=== PATIENT | male | born 1945 | race Caucasian/White ===

== ENCOUNTER 2020-03-25 11:34 | Emergency (ER) | payer MEDICARE, OTHER | END 2020-03-25 11:59 | disposition home or self-care (01) | LOC: BURERS 11:34 | DX: T16.1XXA Foreign body in right ear, initial encounter (principal); E11.9 Type 2 diabetes mellitus without complications; F17.210 Nicotine dependence, cigarettes, uncomplicated | CPT/HCPCS: 69200 ==

== ENCOUNTER 2020-06-16 15:55 | Emergency (ER) | payer MEDICARE, OTHER ==
[2020-06-16 16:22] LABS: #Basophils 0.1 thou/uL (0.0-0.2); #Eosinphils 0.2 thou/uL (0.0-0.7); #Lymphocytes 1.5 thou/uL (1.20-3.40); #Monocytes 0.5 thou/uL (0.11-0.59); #Neutrophils 2.9 thou/uL (1.40-6.50); %Basophils 1.1 % (0.0-1.0); %Eosinophils 3.8 % (0.0-10.0); Mean Corpuscular HGB CONC 31.1 g/dL (32.0-36.0); Mean Corpuscular Hemoglobin 32.9 pg (27.0-31.0); Mean Platelet Volume 6.4 fL (7.4-10.4); Platelet Count 167 thou/uL (130-400); RBC Distribution Width 11.7 % (11.5-14.5); Red Blood Cell (RBC) Count 4.26 mill/uL (4.70-6.10); White Blood Cell (WBC) Count 5.1 thou/uL (4.8-10.8)
--- NOTE | 2020-06-16 16:29 | RAD ---
EXAM: Single view of the chest HISTORY: Chest pain COMPARISON: 05/07/2020 FINDINGS: Single view of the chest shows a normal sized cardiomediastinal silhouette. The patient is status post sternotomy. There is no evidence of consolidation, mass, or pleural effusion. The bones are unremarkable IMPRESSION: No evidence of acute cardiopulmonary disease
[2020-06-16 16:35] LABS: MDiff Complete? YES; Macrocytosis MODERATE=16-30 cells (100X) (0-5/hpf)
[2020-06-16 16:36] LABS: ALT (SGPT) 9 U/L (8-55); AST (SGOT) 14 U/L (5-34); Alkaline Phosphatase 100 U/L (40-110); Anion Gap 15 mmol/L (10-20); BUN (Urea Nitrogen) 11 mg/dL (8.4-25.7); Calc. Creatinine Clearance 0 mL/min (70-130); Calcium 9.3 mg/dL (7.8-10.44); Carbon Dioxide 24 mmol/L (23-31); Chloride 105 mmol/L (98-107); Estimated GFR-MDRD 70; Glucose 94 mg/dL (83-110); Potassium 3.9 mmol/L (3.5-5.1); Sodium 140 mmol/L (136-145)
[2020-06-16] MEDS ORDERED: Nitroglycerin 2% Ointment 1 INCH/1 GM Packet ONE (16:46)
[2020-06-16 16:53] LABS: CKMB 1.4 ng/mL (0-6.6)
== END 2020-06-16 17:49 | disposition short-term general hospital (02) ==
LOC: BURERS 15:55
DX: I21.4 Non-ST elevation (NSTEMI) myocardial infarction (principal); I25.10 Atherosclerotic heart disease of native coronary artery without angina pectoris; E78.5 Hyperlipidemia, unspecified; E78.00 Pure hypercholesterolemia, unspecified; F17.210 Nicotine dependence, cigarettes, uncomplicated; I25.2 Old myocardial infarction; Z79.82 Long term (current) use of aspirin; Z79.899 Other long term (current) drug therapy
CPT/HCPCS: 71045; 80053; 82553; 83880; 84484; 85025; 93005

== ENCOUNTER 2023-01-28 22:33 | Emergency (ER) | payer OTHER, MEDICARE ==
[2023-01-28 23:30] LABS: Bilirubin Negative (Negative); Blood, Urine Small (Negative); Clarity Clear (Clear); Glucose, Urine (Dipstick) Negative (Negative); Ketone, Urine Negative (Negative); Leukocyte Negative (Negative); Nitrite Negative (Negative); Protein, Urine (Dipstick) Negative (Neg-Trace); Specific Gravity, Urine 1.015 (1.005-1.030); Urobilinogen 0.2 mg/dL (Less than 2)
[2023-01-28 23:31] LABS: Hemoglobin 13.3 g/dL (14.0-18.0); Mean Corpuscular HGB CONC 36.4 g/dL (32.0-36.0); Mean Corpuscular Hemoglobin 38.4 pg (27.0-31.0); Mean Platelet Volume 7.7 fL (7.4-10.4); Platelet Count 120 10x3/uL (130-400); RBC Distribution Width 12.1 % (11.5-14.5); Red Blood Cell (RBC) Count 3.46 mill/uL (4.70-6.10); White Blood Cell (WBC) Count 7.2 10x3/uL (4.8-10.8)
[2023-01-28 23:37] LABS: Amphetamine Not Detected (NotDetected); Barbiturates Screen Not Detected (NotDetected); Benzodiazepine Screen Not Detected (NotDetected); Cocaine Metabolite Screen Not Detected (NotDetected); Methadone Not Detected (NotDetected); Methamphetamine Not Detected (NotDetected); Opiate Screen Not Detected (NotDetected); Oxycodone Screen Not Detected (NotDetected); Phencyclidine (PCP) Not Detected (NotDetected); THC/Cannabinoid Screen Not Detected (NotDetected); Tricyclic Screen Not Detected (NotDetected)
[2023-01-28 23:37] LABS: ALT (SGPT) 12 U/L (8-55); AST (SGOT) 19 U/L (5-34); Acetaminophen Less than 10.0 mcg/mL (10.0-30.0); Albumin 3.5 g/dL (3.4-4.8); Alcohol 51 mg/dL (Less than 10); Alkaline Phosphatase 80 U/L (40-110); Anion Gap 16 mmol/L (10-20); BUN (Urea Nitrogen) 6 mg/dL (8.4-25.7); Bilirubin, Total 1.3 mg/dL (0.2-1.2); Calc. Creatinine Clearance 0 mL/min (70-130); Calcium 8.5 mg/dL (7.8-10.44); Carbon Dioxide 22 mmol/L (23-31); Chloride 105 mmol/L (98-107); Estimated GFR 90; Globulin 2.4 g/dL (2.4-3.5); Glucose 77 mg/dL (83-110); Potassium 4.4 mmol/L (3.5-5.1); Protein, Total 5.9 g/dL (5.8-8.1); Salicylate Less than 8.0 mg/dL (15.0-30.0); Sodium 139 mmol/L (136-145)
[2023-01-28 23:38] LABS: Eosinophils 1 % (0-10); Lymphocytes 19 % (21-51); MDiff Complete? YES; Monocytes 7 % (0-10); Neutrophil 72 % (42-75)
[2023-01-28 23:41] LABS: Bacteria/HPF Rare-Few HPF (None Seen); Mucous/LPF Rare LPF (<2+); RBC/HPF 0-3 HPF (0-3); Squamous Epithelial None Seen HPF (0-3); WBC/HPF None Seen HPF (0-3)
[2023-01-28 23:50] LABS: Medtox Control Line Valid? VALID (VALID)
[2023-01-28 23:53] LABS: CKMB 2.5 ng/mL (0-6.6)
[2023-01-29] MEDS ORDERED: Aspirin Chewable 81 MG TAB ONE (00:55)
== END 2023-01-29 03:09 | disposition short-term general hospital (02) ==
LOC: BURERS 22:33
DX: R41.82 Altered mental status, unspecified (principal); R77.8 Other specified abnormalities of plasma proteins; I25.2 Old myocardial infarction; E78.2 Mixed hyperlipidemia; E11.9 Type 2 diabetes mellitus without complications; I11.0 Hypertensive heart disease with heart failure; I50.9 Heart failure, unspecified; J44.9 Chronic obstructive pulmonary disease, unspecified; F03.90 Unspecified dementia, unspecified severity, without behavioral disturbance, psychotic disturbance, mood disturbance, and anxiety; I25.10 Atherosclerotic heart disease of native coronary artery without angina pectoris; F17.210 Nicotine dependence, cigarettes, uncomplicated; Z95.5 Presence of coronary angioplasty implant and graft; Z79.899 Other long term (current) drug therapy
CPT/HCPCS: 51701; 70450; 80053; 80306; 80307; 81003; 81015; 82553; 84443; 84484; 85025; 93005

== ENCOUNTER 2023-09-21 14:00 | Inpatient (IN) | payer MEDICARE, OTHER ==
[2023-09-21] MEDS ORDERED: Acetaminophen 325 MG TAB PO PRN (14:42)
[2023-09-21 15:29] LABS: #Lymphocytes 0.8 thou/uL (1.20-3.40); #Monocytes 0.7 thou/uL (0.11-0.59); #Neutrophils 5.4 thou/uL (1.40-6.50); %Basophils 0.4 % (0.0-1.0); %Eosinophils 0.2 % (0.0-10.0); %Lymphocytes 11.4 % (21.0-51.0); %Monocytes 9.9 % (0.0-10.0); Hematocrit 34.4 % (42.0-52.0); Hemoglobin 12.1 g/dL (14.0-18.0); Mean Corpuscular HGB CONC 35.1 g/dL (32.0-36.0); Mean Corpuscular Hemoglobin 35.9 pg (27.0-31.0); Mean Platelet Volume 6.8 fL (7.4-10.4); Platelet Count 117 10x3/uL (130-400); RBC Distribution Width 13.1 % (11.5-14.5); Red Blood Cell (RBC) Count 3.36 mill/uL (4.70-6.10); White Blood Cell (WBC) Count 6.9 10x3/uL (4.8-10.8)
[2023-09-21 15:31] LABS: MDiff Complete? YES
[2023-09-21] MEDS: Sodium Chloride 0.9% 1,000 ML IV SCH (15:32)
[2023-09-21] MEDS: Nicotine 14 MG PATCH TD SCH (15:32)
[2023-09-21 15:45] LABS: ALT (SGPT) 16 U/L (8-55); AST (SGOT) 17 U/L (5-34); Albumin 3.8 g/dL (3.4-4.8); Alkaline Phosphatase 97 U/L (40-110); Anion Gap 20 mmol/L (10-20); BUN (Urea Nitrogen) 22 mg/dL (8.4-25.7); Bilirubin, Total 2.8 mg/dL (0.2-1.2); Calc. Creatinine Clearance 0 mL/min (70-130); Calcium 9.2 mg/dL (7.8-10.44); Carbon Dioxide 20 mmol/L (23-31); Chloride 103 mmol/L (98-107); Estimated GFR 74; Globulin 2.7 g/dL (2.4-3.5); Glucose 101 mg/dL (83-110); Protein, Total 6.5 g/dL (5.8-8.1); Sodium 139 mmol/L (136-145)
[2023-09-21] MEDS: Famotidine 20 MG TAB PO SCH (21:54)
[2023-09-22] MEDS: Sodium Chloride 0.9% 1,000 ML IV SCH ×4 (01:17→23:24)
[2023-09-22] MEDS: Maxitrol 0.1% Opth 5 ML BOT L EYE SCH ×5 (09:04→20:43)
[2023-09-22] MEDS: Amlodipine 5 MG TAB PO SCH (09:57)
[2023-09-22] MEDS: Famotidine 20 MG TAB PO SCH ×2 (09:57→20:35)
[2023-09-22] MEDS: Folic Acid 1 MG TAB PO SCH (09:57)
[2023-09-22 11:20] VITALS: BMI 15.7
[2023-09-22] MEDS: Nicotine 14 MG PATCH TD SCH (13:58)
[2023-09-22] MEDS: Megestrol Acetate 400 MG/10 ML UDCUP PO SCH (20:35)
[2023-09-22] MEDS: BEER 1 CAN PO SCH (20:35)
[2023-09-23] MEDS: Sodium Chloride 0.9% 1,000 ML IV SCH ×2 (01:41→12:35)
[2023-09-23] MEDS: Megestrol Acetate 400 MG/10 ML UDCUP PO SCH ×2 (08:51→21:24)
[2023-09-23] MEDS: Amlodipine 5 MG TAB PO SCH (08:51)
[2023-09-23] MEDS: Nicotine 21 MG PATCH TD SCH (08:51)
[2023-09-23] MEDS: Folic Acid 1 MG TAB PO SCH (08:51)
[2023-09-23] MEDS: Maxitrol 0.1% Opth 5 ML BOT L EYE SCH ×2 (08:52→21:23)
[2023-09-23] MEDS: Famotidine 20 MG TAB PO SCH ×2 (09:00→21:24)
[2023-09-23] MEDS: BEER 1 CAN PO SCH (14:55)
[2023-09-23] MEDS ORDERED: Ciprofloxacin Lactate/D5W 400 MG in Premix 1 BAG IVPB SCH (21:00)
[2023-09-23] MEDS ORDERED: QUEtiapine 25 MG TAB PO SCH (21:00)
[2023-09-23] MEDS: Ciprofloxacin 500 MG TAB PO SCH (21:24)
[2023-09-23] MEDS: Docusate 100 MG CAP PO SCH (21:24)
[2023-09-24] MEDS ORDERED: Lorazepam 0.5 MG TAB PO PRN (01:15)
[2023-09-24] MEDS: Sodium Chloride 0.9% 1,000 ML IV SCH (07:58)
[2023-09-24] MEDS: BEER 1 CAN PO SCH (09:05)
[2023-09-24] MEDS: Famotidine 20 MG TAB PO SCH (10:36)
[2023-09-24] MEDS: Docusate 100 MG CAP PO SCH (10:36)
[2023-09-24] MEDS: Megestrol Acetate 400 MG/10 ML UDCUP PO SCH (10:36)
[2023-09-24] MEDS: Amlodipine 5 MG TAB PO SCH (10:36)
[2023-09-24] MEDS: Ciprofloxacin 500 MG TAB PO SCH (10:40)
[2023-09-24] MEDS: Folic Acid 1 MG TAB PO SCH (10:40)
[2023-09-24] MEDS: Nicotine 21 MG PATCH TD SCH (10:41)
[2023-09-24] MEDS: Maxitrol 0.1% Opth 5 ML BOT L EYE SCH (10:41)
[2023-09-24 17:44] VITALS: BP 134/73; TEMP 97.5
== END 2023-09-24 17:35 | DRG 640 ==
LOC: BURMED 14:00
PROVIDERS: ADMIT Family Medicine; ATTEND Family Medicine
DX: E86.0 Dehydration (principal); E43 Unspecified severe protein-calorie malnutrition; Z68.1 Body mass index [BMI] 19.9 or less, adult; N39.0 Urinary tract infection, site not specified; R62.7 Adult failure to thrive; D51.0 Vitamin B12 deficiency anemia due to intrinsic factor deficiency; I10 Essential (primary) hypertension; F41.9 Anxiety disorder, unspecified; N40.0 Benign prostatic hyperplasia without lower urinary tract symptoms; Z95.5 Presence of coronary angioplasty implant and graft; Z96.641 Presence of right artificial hip joint; Z95.1 Presence of aortocoronary bypass graft; Z98.890 Other specified postprocedural states; Z88.0 Allergy status to penicillin; Z88.1 Allergy status to other antibiotic agents
CPT/HCPCS: 71046; 80053; 82607; 84443; 85025; 87077; 87086; 87186; J1650; J7050